=== PATIENT | male | born 1945 | race Caucasian/White ===

== ENCOUNTER 2023-06-14 08:32 | Day surgery (SDC) | payer OTHER ==
[~2023-06-14] VITALS: Ht 175.3 cm; Wt 91.4 kg
[~2023-06-14 08:32] MED LIST: ATOR40TA PO; Amlodipine Besy10 MG PO; Aspir 8181 MG PO; CLARITIN10 MG PO; Doxazosin Mesyla8 MG PO; GLUCOPHAGE1000 M1 PO; INSULANI SC; JARDIANCE10 MG PO; LISI20 PO; METO50 PO; Meribin5 MG PO; Multiple Vitam1 EACH PO; OXYB5 PO; TRAZ100 PO; VITAMIN D-32000 UNIT PO; Vitamin B-121000 MCG PO; WARF5; WARF5 PO; WARF7.5 PO
== END 2023-06-14 10:30 | disposition home or self-care (01) ==
LOC: ORSCSDS 08:32
PROVIDERS: Ophthalmology
PROC: 08RK3JZ Replacement of Left Lens with Synthetic Substitute, Percutaneous Approach (ICD-10-PCS; principal; 2023-06-14 10:00)
DX: H25.12 Age-related nuclear cataract, left eye (principal); H21.81 Floppy iris syndrome; E78.5 Hyperlipidemia, unspecified; I10 Essential (primary) hypertension; Z86.73 Personal history of transient ischemic attack (TIA), and cerebral infarction without residual deficits; G47.33 Obstructive sleep apnea (adult) (pediatric); Z79.899 Other long term (current) drug therapy; Z79.82 Long term (current) use of aspirin; Z79.84 Long term (current) use of oral hypoglycemic drugs
CPT/HCPCS: 82947; J2001; J2250; J3010; J3301; J7040; V2632